=== PATIENT | female | born 1980 | race Caucasian/White ===

== ENCOUNTER 2017-08-21 17:31 | Inpatient (IN) ==
[~2017-08-21 17:31] MED LIST: *HR* Nalbuphine 10 MG/ML AMPUL IVP PRN; Famotidine 20 MG/2 ML VIAL IVP PRN; Metoclopramide 10 MG/2 ML VIAL IVP PRN; Naloxone 0.4 MG/ML INJ IVP PRN; Ondansetron 4 MG/2 ML VIAL IVP PRN
[2017-08-21] MEDS ORDERED: Oxytocin 20 units/ LR 1000 mL 20 UNIT/1,000 ML BAG IVC SCH (17:45)
[2017-08-21] MEDS ORDERED: Penicillin G Potassium 5,000,000 UNIT in 0.9 % Sodium Chloride Mini Bag 100 ML IVPB ONE (18:00)
[2017-08-21 18:04] LABS: Basophils % 0.3 %; Eosinophils # 0.2 K/mcL (0.0-0.6); Eosinophils % 1.1 %; Hematocrit 35.4 % (35.3-44.9); Hemoglobin 11.7 g/dL (11.5-15.4); Immature Granulocytes % 0.6 % (0-4); Lymphocytes # 2.8 K/mcL (0.6-4.6); Lymphocytes % 19.9 %; Mean Corpuscular HGB Conc 33.1 g/dL (31.6-35.5); Mean Corpuscular Hemoglobin 30.8 pg (28.0-33.3); Mean Corpuscular Volume 93.2 fL (83.0-100.0); Mean Platelet Volume 9.6 fL (9.4-12.4); Monocytes # 0.8 K/mcL (0.0-1.3); Neutrophils # 10.2 K/mcL (1.6-8.9); Platelet Count 231 K/mcL (140-400); Segmented Neutrophils % 72.1 %
[2017-08-21] MEDS: Ringers Solution, Lactated 1,000 ML IVC SCH ×2 (18:04→23:19)
[2017-08-21 19:06] LABS: Amphetamine Screen,Urine Negative ng/mL (Cutoff=1000); Barbiturate Screen,Urine Negative ng/mL (Cutoff=200); Benzodiazepines Screen,Urine Negative ng/mL (Cutoff=200); Cannabinoid Screen,Urine Negative ng/mL (Cutoff = 50); Cocaine Screen,Urine Negative ng/mL (Cutoff= 300); Opiate Screen,Urine Negative ng/mL (Cutoff=300); Phencyclidine Screen,Urine Negative ng/mL (Cutoff=25)
--- NOTE | 2017-08-21 19:10 | OB/GYN History & Physical ---
Date of Encounter: 08/21/17 Time of Encounter: 19:08 Assessment and Plan (1) 38 weeks gestation of Current visit: Yes Status: Acute Admit for augmentation of labor GBS positive - PCN prophylaxis Patient elects to start Pit after discussion as opposed to wait for ctx to start Patient may have nubain and or epidural upon request Anticpate vaginal delivery POC per consult with Dr Lyle (2) Premature rupture of membranes Current visit: Yes Status: Acute Qualifiers: PROM onset of labor timing: unspecified duration between rupture of membranes and onset of labor PROM gestational age: full term Qualified Code( s): O42.92 - Full-term premature rupture of membranes, unspecified as to length of time between rupture and onset of labor History of Present Illness Chief complaint: Leaking fluid HPI: Ms. Roche is a 36 year old at 38 weeks 6 days that presents to labor and delivery with c/o rupture of fluid this morning at 10 am. Her has been complicated by advanced maternal age. She denies headaches, vision changes, epigastric pain, contractions, and cramping. She states positive movement. She denies any complications with any of her previous deliveries. Labs GBS + Blood type A+ RPR Neg HIV neg Hep B Neg Rubella Pos Varicella Pos Past Med Surg Social Fam HX - Past Medical History Medical history: migraine Psychiatric history: no psych history - Past Surgical History Additional surgical history: ovarian cyst removal, right ovary removal, T&A, cyst removed from right foot - Social History Smoking Status: Never smoker Smokeless Tobacco Status: No Alcohol use: none Drug use: none - Family History Mother Living Status: Still Living Hx Family Cardiac Disorders: No Hx Family Respiratory Disorders: No Hx Family Cancer: No Hx Family GI Disorders: No Hx Family Genitourinary Disorders: No Hx Family Endocrine Disorder: No Hx Family Musculoskeletal Disorders: No Hx Family Neuromuscular Disorders: No Hx Family Neurologic Disorders: No Hx Family HEENT Disorders: No Hx Family Autoimmune Disorders: No Hx Family Reproductive Disorders: No Hx Family Psychosocial Disorders: No Hx Family Medical Disorders: No Obstetrical History - Pregnancies : 3 Para: 2 Term: 2 : 0 Ab's: 0 Livin Medications and Allergies Pnv95/Ferrous Fumarate/FA [ Vitamin Tablet] 1 each PO DAILY 08/21/17 [ History] 3 Allergy/AdvReac Type Severity Reaction Status Date / Time No Known Allergies Allergy Verified 08/21/17 17:39 Review of System OB All systems PM: reviewed and no additional remarkable complaints except as stated Exam - Constitutional Constitutional: well developed, well nourished, no acute distress, average body habitus - HEENT HEENT: Normocephaly, Mucus Membranes Moist - Lungs Respiratory exam: CTAB - Cardiovascular Cardiovascular exam: RRR, +S1, +S2 - Abdomen Abdomen: Present: bowel sounds normal, gravid, non tender - Extremities Extremities exam: calf tenderness, normal capillary refill, normal inspection Deep Tendon Reflex Grade: 2+ Normal - Vulva Vulva: bilateral: normal - Vagina Vagina: Present: normal moisture - Cervix Dilation: 3 Effacement: 60 Station: -2 - Uterus Uterus exam: Present: normal size, normal contour - Anus/Rectum Anus/Rectum: Present: normal perianal skin Results Result Diagrams: 08/21/17 17:42 Abnormal lab results WBC 14.1 K/mcL (4.3-11.1) H 08/21/17 17:42 RBC 3.80 M/mcL (3.82-4.97) L 08/21/17 17:42 Neutrophils # 10.2 K/mcL (1.6-8.9) H 08/21/17 17:42 All other labs normal. - VTE Reasons for not Prescribing Prophylaxis: Treatment not Indicated - Low risk for VTE
--- NOTE | 2017-08-21 20:34 | Anesthesia Evaluation PreOp ---
Date of Encounter: 08/21/17 Time of Encounter: 20:32 - Past History Planned Operation: albert Cardiac History: Denies any Significant Hx Pulmonary History: Denies Any Significant HX BOTTLE AND GLASS INSPECTOR History: Denies Any Significant HX Other Medical History: Denies Any Significant HX Anesthesia History: No Prior Anesthetic Complications, Past Anesthesia (albert, ovarian cyst, foot) : Yes Test: Positive Alcohol Use: none Drug use: none Medications and Allergies Pnv95/Ferrous Fumarate/FA [ Vitamin Tablet] 1 each PO DAILY 08/21/17 [ History] 3 Allergy/AdvReac Type Severity Reaction Status Date / Time No Known Allergies Allergy Verified 08/21/17 17:39 - Meds/Allergy Pre-op Review Medications Reviewed: Yes Allergies Reviewed: Yes Beta Blockers on Current Med List: No Anesthesia Results - Labs 08/21/17 17:42 Anesthesia Exam 108/68 66 16 fht 142 Height: 5'5" Weight: 90 k NPO (# of Hours): 3 Pain Scale: 2 Pain Scale Used: Numeric (1 - 10) - HEENT Pupil (Motor): Pupils equal Mallampati: II Teeth: Normal Oral Opening: Greater than 3 - BOTTLE AND GLASS INSPECTOR LOC: Oriented BOTTLE AND GLASS INSPECTOR Motor: Normal RUE, Normal LUE, Normal RLE, Normal LLE, Normal Face BOTTLE AND GLASS INSPECTOR Sensory: Normal: RUE, LUE, RLE, LLE, Face - Cardiac Rhythm: Regular Murmur: None - Pulmonary Breath Sounds: bilateral Clear Respiratory Effort: Symmetrical Anesthesia Assess/Plan ASA Score: 2 Modified Pat Scale for Level of Consciousness: Cooperative, oriented, and tranquil Anesthetic Plan: Regional Autologous Blood: No Monitoring Plan: Standard Monitors Recovery Plan: Other (risks discussed questions answered, consented)
[2017-08-21] MEDS ORDERED: *HR* FentaNYL (PF) 100 MCG/2 ML VIAL EP ONE (20:35)
[2017-08-21] MEDS ORDERED: *HR* Ropivacaine/PF 0.2% 20 ML VIAL EP ONE (20:35)
[2017-08-21] MEDS ORDERED: Epidural Premix (fent/bupiv) 110 ML EP SCH (20:45)
--- NOTE | 2017-08-21 22:34 | OB Labor Progress Note ---
Date of Encounter: 08/21/17 Time of Encounter: 22:32 Labor Progress Note - Subjective Subjective: Patient breathing through contractions; would like her epidural - Vital Signs Vital Signs: VSS - Cervix Cervix: 3-4/80/-1 - Heart Tones Heart Tones: 150 - [place]: contractions every 2 hours - Plan Plan: Continue routine labor management GBS positive - PCN prophylaxis Pitocin titration Epidural upon request Anticipate vaginal delivery POC per consult with Dr Lyle
[2017-08-21] MEDS ORDERED: Lidocaine -MPF 2% 5 ML VIAL ONE (22:37)
[2017-08-21] MEDS ORDERED: *HR* Ropivacaine/PF 0.2% 20 ML VIAL ONE (22:37)
[2017-08-21] MEDS ORDERED: *HR* FentaNYL (PF) 100 MCG/2 ML VIAL ONE (22:37)
--- NOTE | 2017-08-21 23:05 | Anesthesia Procedures ---
Date of Encounter: 08/21/17 Time of Encounter: 23:04 Procedures: Anesthesia - Epidural/Spinal Patient ID/Chart reviewed: Yes Patient examined: Yes OB Eval: Gestational age: 38.6 OB Eval: : 3 OB Eval: Hx Para: 2 OB Eval: Dilated at (cm): 4 OB Eval: Contractions: Non-stressed pattern Consent Obtained: Yes Supplemental Oxygen: None/Room Air Site Prep: Aseptic Technique, Sterile prep and drape, 0.5% Chlorhexidine/Alcohol Patient position: upright Local Anesthetic: Lidocaine 1% Amount of Local Anesthetic used: 3 Touhy Needle Gauge: 18 Touhy Needle Depth (cm): 6 Catheter Depth at Skin (cm): 15 Test Dose (1.5% Lido + Epi): Volume given (mls): 3 Test Dose Result: Negative Loading Dose: Fentanyl (mcg): 100 Loading Dose: Other: rop 0.2% 10cc Loading Dose Administered: Thru Touhy Needle Infusion Med: 0.125% Bupivacaine w/ 2 mcg/ml Fentanyl Infusion Rate (mls/hr): 15 (pcea 5cc q30") Catheter Secured in Place: Tegaderm Interspace Used: L2-L3 Loss of Resistance (DOMITILA): Yes Blood: No CSF: No Paresthesia: No Procedure: aseptic, tolerated well, VSS, effective Vitals + FHT's: 140/88 87 16 FHT 144
[2017-08-21] MEDS: Penicillin G Potassium 2,500,000 UNIT in 0.9 % Sodium Chloride 100 ML IVPB SCH (23:19)
--- NOTE | 2017-08-22 01:20 | OB Labor Progress Note ---
Date of Encounter: 08/22/17 Time of Encounter: 01:18 Labor Progress Note - Subjective Subjective: Resting comfortably with epidural in place - Vital Signs Vital Signs: VSS - Cervix Cervix: 4/80/-1 - Heart Tones Heart Tones: 140's - [place]: Contractions every 2 - 4 minutes - Interventions Interventions: IUPC placed without difficulty. Patient and fetus tolerated well. - Plan Plan: Continue routine labor management GBS positive, PCN prophylaxis Titrate pitocin Anticipate vaginal delivery POC per consult with Dr Lyle
[2017-08-22] MEDS: Penicillin G Potassium 2,500,000 UNIT in 0.9 % Sodium Chloride 100 ML IVPB SCH (03:23)
[2017-08-22] MEDS ORDERED: *HR* FentaNYL (PF) 100 MCG/2 ML VIAL EP ONE (03:31)
--- NOTE | 2017-08-22 03:33 | Anesthesia Progress Note ---
Date of Encounter: 08/22/17 Time of Encounter: 03:32 Anesthesia Note - Note Note: 08/22/17 03:32 fentanyl 100 mg rop 0.2% 5 cc for back pain
[2017-08-22] MEDS ORDERED: *HR* FentaNYL (PF) 100 MCG/2 ML VIAL ONE (03:34)
--- NOTE | 2017-08-22 04:42 | OB/GYN Procedure Note ---
Delivery - Delivery Date: 08/22/17 Provider: Gerri Zhu Intrapartum events: none Delivery induction: none Delivery augmentation: pitocin Delivery monitor: external FHT, external uterine, internal uterine Anesthesia: epidural Quantitated Blood Loss: 250 - Infant (s) A Delivery Date: 08/22/17 Delivery Time: 04:15 Presentation: vertex Position: OA (compound left hand) Route of delivery: Gender: Male Viability: Viable Pounds: 7 Ounces: 14 Weight Gram: 3.56 kg at 1 minute: 8 at 5 mins: 9 Shoulder Dystocia: not encountered Specimens collected: cord blood Placenta: spontaneous Cord: nuchal cord, 3 umbilical vessels, delivered through nuchal - Repair Episiotomy: none Laceration Description: Periurethral (superficial hemostatic) - Complications Delivery complications: none Delivery comments: Patient rapidly progressed from 7 cm to complete. Began coached pushing to of viable, vigorous male infant in the direct OA position with a compound left hand. loose nuchal present; delivered through. no meconium and no shoulder dystocia encountered. placed on maternal abdomen, cord double clamped and cut with assistance of father. Apgars 8 and 9 at one and five minutes of age. Placenta delivered spontaneously, appears grossly intact with 3 vesssel cord and a marginal cord insertion. Upon perineal inspection, there is a superfical periuretheral on the right side that was hemostatic. Left to heal by second intention. EBL 350. fundus at 2 below u and firm, bleeding light. and mother left in recovery for 2 hours; stable. Dr Lyle notified of delivery. - Disposition Mom disposition: stable in LDR disposition: stable in LDR
[2017-08-22] MEDS ORDERED: Benzocaine/Menthol 56 GM AEROSOL SPRAY TP PRN (07:09)
[2017-08-22] MEDS ORDERED: Oxytocin 20 units/ LR 1000 mL 20 UNIT/1,000 ML BAG IVC SCH (07:09)
[2017-08-22] MEDS ORDERED: Oxytocin 20 units/ LR 1000 mL 20 UNIT/1,000 ML BAG IVC ONE (07:09)
[2017-08-22] MEDS ORDERED: Sennosides 8.6 MG TABLET PO PRN (07:09)
[2017-08-22] MEDS ORDERED: Acetaminophen 325 MG TABLET PO PRN (07:09)
[2017-08-22] MEDS ORDERED: Measles/Mumps/Rubella Vacc 0.5 ML VIAL SQ PRN (07:09)
[2017-08-22] MEDS: Prenatal Vit/FA 1 EACH TABLET PO SCH (08:29)
[2017-08-22] MEDS: Ibuprofen 600 MG TABLET PO PRN ×3 (08:29→20:37)
[2017-08-23] MEDS: Ibuprofen 600 MG TABLET PO PRN ×2 (02:11→08:44)
[2017-08-23] MEDS: Prenatal Vit/FA 1 EACH TABLET PO SCH (07:47)
[2017-08-23 07:59] VITALS: BP 105/54
--- NOTE | 2017-08-23 09:54 | Discharge Summary ---
Date of Encounter: 08/23/17 Time of Encounter: 09:52 - Discharge Diagnosis (1) Vaginal delivery Priority: Primary Status: Acute Comments: Doing well. Ambulating and voiding without difficulty. Tolerating regular diet well. Denies MORA, visual disturbance and epigastric pain. Lochia light and without clots. Mild abdominal cramping well controlled with Ibuprofen. Baby in crib at bedside, states formula feeding well. Patient desires to go home today. - Discharge Medications Prescriptions: Ibuprofen [Motrin] 600 mg PO Q6HR PRN #30 tablet PRN Reason: Cramping Docusate [Colace] 100 mg PO BID #20 capsule Home Medications: Pnv95/Ferrous Fumarate/FA [ Vitamin Tablet] 1 each PO DAILY 08/21/17 [ History] Acetaminophen [Tylenol] 650 mg PO Q6HR PRN tablet 08/23/17 [Rx] Benzocaine/Menthol [place] [Dermoplast [place]] 1 appl TP QID PRN aerosol 08/23/17 [Rx] Docusate [Colace] 100 mg PO BID #20 capsule 08/23/17 [Rx] Ibuprofen [Motrin] 600 mg PO Q6HR PRN #30 tablet 08/23/17 [Rx] Allergies/Adverse Reactions: 3 Allergy/AdvReac Type Severity Reaction Status Date / Time No Known Allergies Allergy Verified 08/21/17 17:39 Data Procedures and tests throughout hospitalization: Laboratory Tests 08/21/17 08/21/17 17:42 17:42 WBC 14.1 H RBC 3.80 L Hgb 11.7 Hct 35.4 MCV 93.2 MCH 30.8 MCHC 33.1 RDW 14.0 Plt Count 231 MPV 9.6 Immature Gran % 0.6 Seg Neutrophils % 72.1 Lymphocytes % 19.9 Monocytes % 6.0 Eosinophils % 1.1 Basophils % 0.3 Neutrophils # 10.2 H Lymphocytes # 2.8 Monocytes # 0.8 Eosinophils # 0.2 Basophils # 0.0 Urine Opiates Screen Negative Ur Barbiturates Screen Negative Ur Phencyclidine Scrn Negative Ur Amphetamines Screen Negative U Benzodiazepines Scrn Negative Urine Cocaine Screen Negative U Marijuana (THC) Screen Negative Ur Drug Screen Interp See Below Date of admission: 08/21/17 17:31 Primary care physician: PCP NONE Consults: 08/22/17 07:09 Consult to Glove Cuffer [CONS] Routine Comment: Vaginal delivery, consult needed Discharging clinician: Gerri Zhu Anticipated date of discharge: 08/23/17 - Patient Status Disposition: Home, Self-Care Condition: Good Functional capacity at discharge: independent ambulation Overall status at discharge: patient is progressing back to baseline - Discharge Instructions Instructions: Vaginal Delivery (DC) Follow Up With: Gerri Zhu CNM [Advanced Practice Nurse] - Additional Instructions: Follw up 4 weeks in office with Gerri Zhu CNM, IVORY - Diet and Activity Activity: resume usual activities as tolerated Diet: regular diet Hospital Course Reason for admission: rupture of membranes Delivery: Episiotomy: none Laceration: other (Right periurethral, hemostatic, unrepaired) complications: none Discharge diagnosis: IUP at term delivered [place] baby: male Time spent discussing smoking cessation with patient: 3 to 10 minutes Time Attestation: Total time spent providing and/or coordinating discharge services: Time Spent: Less than 30 minutes Exam - Constitutional Vitals: Temp Pulse Resp BP Pulse Ox 97.8 F 69 16 105/54 96 08/23/17 07:57 08/23/17 07:57 08/23/17 07:57 08/23/17 07:57 08/23/17 07:57 General appearance IM: A&O X 3 - Respiratory Respiratory exam: Present: CTAB - Cardiovascular Cardiovascular exam IM: Present: JVD - GI/Abdominal GI/Abdominal exam IM: normal bowel sounds - Rectal Rectal exam: deferred - Uterus Position: At Umbilicus, Midline - Extremities Exam Extremities exam IM: Present: full ROM, normal inspection, radial pulses palpable and symmetrical - Neurological Exam Neurological exam: alert, normal gait, oriented X3, reflexes normal
== END 2017-08-23 13:37 | disposition home or self-care (01) | DRG 560 ==
LOC: 1NENULAB → 1NENUOBS 08-22 07:38
PROVIDERS: ADMIT Advanced Practice Midwife; ATTEND Advanced Practice Midwife